=== PATIENT | female | born 1960 ===

== ENCOUNTER 2018-06-26 19:03 | Emergency (ER) | payer MEDICAID, OTHER ==
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
[2018-06-26 22:47] VITALS: BP 146/88; PULSE 75; RESP 18; TEMP 98.3
--- NOTE | 2018-06-27 09:03 | CT ---
Date of service: 06/26/2018 PROCEDURE: CT HEAD WITHOUT CONTRAST. HISTORY: headache severe head trauma COMPARISON: None available. TECHNIQUE: Axial computed tomography images were obtained through the head/brain without intravenous contrast. Radiation dose: Total exam DLP = 828.8 mGy-cm. This CT exam was performed using one or more of the following dose reduction techniques: Automated exposure control, adjustment of the mA and/or kV according to patient size, and/or use of iterative reconstruction technique. FINDINGS: HEMORRHAGE: No intracranial hemorrhage. BRAIN: No mass effect or edema. No atrophy or chronic microvascular ischemic changes. No evidence of acute infarct. VENTRICLES: Unremarkable. No hydrocephalus. CALVARIUM: Unremarkable. PARANASAL SINUSES: Unremarkable as visualized. No significant inflammatory changes. MASTOID AIR CELLS: Unremarkable as visualized. No inflammatory changes. OTHER FINDINGS: None. IMPRESSION: Normal CT of the Head. No intracranial mass, hemorrhage or evidence of acute infarct. The preliminary findings for this examination were reported by [facility] at 9:40 p.m. on 06/26/2018. There is concurrence of this report with the preliminary findings.
--- NOTE | 2018-06-27 09:28 | CT ---
Date of service: 06/26/2018 PROCEDURE: CT Cervical Spine without contrast HISTORY: severe neck pain s/p injury head trauma COMPARISON: None available. TECHNIQUE: Axial computed tomography images were obtained of the cervical spine without the use of intravenous contrast. Coronal and sagittal reformatted images were created and reviewed. Radiation dose: Total exam DLP = 343.78 mGy-cm. This CT exam was performed using one or more of the following dose reduction techniques: Automated exposure control, adjustment of the mA and/or kV according to patient size, and/or use of iterative reconstruction technique. FINDINGS: VERTEBRAE: The vertebral bodies are maintained in height. Normal alignment is maintained. The atlantoaxial articulation and odontoid process are intact. DISCS/SPINAL CANAL/NEURAL FORAMINA: There is mild narrowing of the C6-7 intervertebral disc space consistent with early degenerative disc disease. The remaining intervertebral disc spaces are maintained in height. There is no central spinal stenosis appreciated. PARASPINAL SOFT TISSUES: Unremarkable. OTHER FINDINGS: None. IMPRESSION: No fracture/dislocation. Mild degenerative disc disease at C6-7. Otherwise unremarkable examination. The preliminary findings for this examination were reported by [facility] at 9:42 p.m. on 06/26/2018.. There is concurrence of this report with the preliminary findings.
--- NOTE | 2018-06-27 11:56 | CT ---
Date of service: 06/26/2018 PROCEDURE: CT MAXILLOFACIAL BONES WITHOUT CONTRAST HISTORY: Left jaw pain status post fall with head injury. COMPARISON: Comparison made with concurrent CT scan of the brain. TECHNIQUE: Contiguous axial CT images of the maxillofacial bones were obtained. Coronal and sagittal reformats were generated. Radiation dose: Total exam DLP = 706.96 mGy-cm. This CT exam was performed using one or more of the following dose reduction techniques: Automated exposure control, adjustment of the mA and/or kV according to patient size, and/or use of iterative reconstruction technique. FINDINGS: NASAL BONES: Unremarkable. ORBITS: Unremarkable. PARANASAL SINUSES/ MASTOIDS: Frontal sinus is atrophic. The ethmoid air complex is diminutive with minimal mucosal thickening. Sphenoid air complexes also diminutive in overall size. Mild mucosal thickening seen within the left maxillary antrum with minimal mucosal thickening right maxillary antrum. MAXILLA: Maxilla intact. MANDIBLE/ TEMPOROMANDIBULAR JOINTS: Unremarkable. SKULL BASE: Unremarkable. TEMPORAL BONES: There is underpneumatized sclerotic appearing right mastoid air complex. The left mastoid air complexes also minimally underpneumatized and sclerotic. OTHER FINDINGS: None. IMPRESSION: Unremarkable non contrast enhanced CT of the maxillofacial bones.
--- NOTE | 2018-06-27 16:10 | RAD ---
PROCEDURE: Right Hand Radiographs. HISTORY: Right hand swelling s/p fall COMPARISON: None. FINDINGS: BONES: Normal. No fracture. JOINTS: Normal. No osteoarthritic changes.. Negative ulnar variance. SOFT TISSUES: There may be some mild dorsal soft tissue swelling. OTHER FINDINGS: None. IMPRESSION: No definitive radiographic evidence of acute displaced fracture nor dislocation. If symptoms persist or occult fracture suspected clinically recommend repeat radiographs in 7-10 days as most fractures should become radiographically evident in this timeframe.
[2018-06-28 09:47] VITALS: O2SAT 99
== END 2018-06-26 22:46 | disposition home or self-care (01) ==
LOC: H.ER 19:03
DX: S09.90XA Unspecified injury of head, initial encounter (principal); S19.9XXA Unspecified injury of neck, initial encounter; S60.221A Contusion of right hand, initial encounter; Z87.891 Personal history of nicotine dependence; V79.88XA Bus occupant (driver) (passenger) injured in other specified transport accidents, initial encounter